=== PATIENT | female | born 1965 ===

== ENCOUNTER 2024-11-04 16:52 | Emergency (ER) | payer SELFPAY ==
[~2024-11-04] VITALS: Ht 167.6 cm; Wt 63.5 kg
[2024-11-04 17:38] VITALS: BP 172/80; PULSE 60; RESP 16; TEMP 98.3; O2SAT 98
[2024-11-04] MEDS: ORPHENADRINE 60MG/2ML IM ONE (17:45)
--- NOTE | 2024-11-04 17:58 | NUR ---
PATIENT ABLE TO AMBULATE WITH NO VISABLE DISTRESS, PAIN REPORTED TO NECK AND BACK HOWEVER NO FACIAL GRIMACE WITH MOVEMENT AND PT VERBALIZED THE NEED FOR X-RAY DUE TO POTENTIAL FUTUE PROBLEMS
--- NOTE | 2024-11-04 18:30 | ERN ---
General Chief Complaint: Mechanical Fall Stated Complaint: FLIP AND FALL Time Seen by MD: 16:54 Source: patient History of Present Illness Initial Comments PATIENT IS A 59-YEAR-OLD FEMALE COMING IN TO BE EVALUATED FALL EARLIER TODAY. PER PATIENT AT 10:00 A.M. SHE WAS WALKING FELL BACK HIT HERSELF IN THE UPPER BACK AND LOWER BACK. SHE STATES THAT THE PAIN WAS NOT IMMEDIATELY PRESENT. SHE HAS BEEN SHOPPING 3 HOURS LATER SHE STARTED HAVING UPPER BACK AND LOWER BACK PAIN. Allergies: Coded Allergies: No Known Drug Allergies (Unverified Allergy, Unknown, 11/04/24) Past Medical History Past Medical History: No Pertinent History Past Surgical History: None ROS Dictation CONSTITUTIONAL: NO CHILLS, NO FEVER, NO WEAKNESS, NO DIAPHORESIS, NO MALAISE. HEAD/FACE: NO SIGNS OF TRAUMA. EENT: NO EYE PAIN, NO BLURRED VISION, NO TEARING, NO DOUBLE VISION, NO EAR PAIN, NO EAR DISCHARGE, NO NOSE PAIN, NO NASAL CONGESTION, NO THROAT PAIN, NO THROAT SWELLING, NO MOUTH PAIN. RESPIRATORY: NO COUGH, NO ORTHOPNEA, NO SOB, NO STRIDOR, NO WHEEZING. CARDIOVASCULAR: NO CHEST PAIN, NO EDEMA, NO PALPITATIONS, NO SYNCOPE. GASTROINTESTINAL/ABDOMINAL: NO ABDOMINAL PAIN, NO CONSTIPATION, NO DIARRHEA, NO NAUSEA, NO VOMITING. GENITOURINARY: NO ABNORMAL DISCHARGE, NO DYSURIA, NO FREQUENT URINATION, NO HEMATURIA. NO COMPLAINTS OF PAIN IN THE GENITALS. MUSCULOSKELETAL: BACK PAIN, NO GOUT, NO JOINT PAIN, NO JOINT SWELLING, NO MUSCLE PAIN, NO MUSCLE STIFFNESS, NO NECK PAIN. INTEGUMENTARY: NO CHANGE IN COLOR, NO CHANGE IN HAIR/NAILS, NO DRYNESS, NO LES ION, NO LUMPS, NO RASH. NEUROLOGICAL/PSYCH: NO ANXIETY, NOT DEPRESSED, NO EMOTIONAL PROBLEM, NO HEADACHE, NO NUMBNESS, NO PRE-EXISTING DEFICIT, NO HISTORY OF SEIZURES, NO TREMORS, NO WEAKNESS. HEMATOLOGIC/LYMPHATIC: NOT ANEMIC, NO HISTORY OF BLOOD CLOTS, NO APPARENT BLEEDING, NO BRUISING, GLANDS NOT SWOLLEN. ALL SYSTEMS NEGATIVE, EXCEPT NOTED. Physical Exam Physical Exam Dictation VITAL SIGNS: REVIEWED. GENERAL APPEARANCE: ALERT, ORIENTED X3, NO ACUTE DISTRESS, OBESE. HEAD AND FACE: NON-TRAUMATIC. EYES: PERRL, PINK CONJUNCTIVAS, EYELID NO TRAUMA, ANTERIOR CHAMBER CLEAR. EARS: PINNAS INTACT AND NO SIGNS OF TRAUMA OR ERYTHEMA. EAR CANALS CLEAR AND NO DISCHARGE. TMS NO ERYTHEMA. NOSE: NO DISCHARGE, NO BLEEDING. OROPHARYNX: MOUTH NORMAL, TEETH NO CARIES, TONGUE PINK. PHARYNX CLEAR, NO ERYTHEMA. TONSILS NO EXUDATES, NO ABSCESSES NOTED. MUCOUS MEMBRANE MOIST. NECK: SUPPLE, NON-TENDER, NO THYROMEGALY, NO MASSES, NO JVD, NO BRUITS. BREAST: DEFERRED. CHEST: NO TENDERNESS, NO CREPITUS, NO PARADOXICAL MOVEMENT, NO RETRACTIONS. LUNGS: CLEAR, WELL-VENTILATED, SYMMETRIC, NO RALES, NO WHEEZING, NO RHONCHI, NO STRIDOR, GOOD BREATH SOUNDS BILATERALLY. HEART: REGULAR RATE, REGULAR RHYTHM, NO MURMUR, NO GALLOPS. VASCULAR: NO PERIPHERAL EDEMA. ABDOMEN: SOFT, POSITIVE BOWEL SOUNDS, NONDISTENDED, NO GUARDING, NONTENDER, NO REBOUND, NO MASSES NO HEPATOMEGALY, NO SPLENOMEGALY, NO BETANCOURT'S SIGN, NO HERNIAS. RECTAL: DEFERRED. GENITAL: DEFERRED. NEUROLOGICAL: NORMAL SPEECH, GROSS MOTOR FUNCTION INTACT, GROSS SENSORY FUNCTION INTACT. MUSCULOSKELETAL: NECK NONTENDER, FULL RANGE OF MOTION, POWER SYSTEM ELECTRICAL ENGINEER, FULL RANGE OF MOTION. EXTREMITIES: NONTENDER, FULL RANGE OF MOTION. SKIN: COLOR PINK, DRY, NO TURGOR, NO RASH, NO LACERATIONS, NO ABRASIONS, NO CONTUSIONS. LYMPHATICS: DEFERRED. Results Laboratory and Microbiology Labs Reviewed?: Yes EKG/XRAY/US/CT/MRI X-RAY Comment X-RAY [id number] CHANGES MDM MDM: DIFFERENTIAL DIAGNOSIS: FALL, BACK PAIN, MUSCLE STRAIN, MUSCLE SPASMS RATIONALE: TESTS CONSIDERED AND ORDERED SECONDARY TO SHARED DECISION MAKING INCLUDE: PREVIOUS OUTSIDE RECORDS REVIEWED: OLD ER VISITS. RISK OF COMPLICATION AND/OR MORBIDITY OR MORTALITY OF PATIENT MANAGEMENT: NONE MEDICATIONS-PER MEDICATION RECONCILIATION PATIENT IS A 59-YEAR-OLD FEMALE COMING IN TO BE EVALUATED FOR BACK PAIN. PATIENT STATES HE FELL BACK HER UPPER BACK AND HAS BEEN HAVING DISCOMFORT. X- RAYS DID NOT DISCLOSE ACUTE FINDINGS. PATIENT WILL BE DISCHARGED WITH A DIAGNOSIS OF MUSCLE SPASMS AND MUSCLE ACHE. DID ADVISED HER APPROPRIATE FOLLOW UP WITH PCP FOR LONG-TERM MANAGEMENT. ED Course Orders Procedure Category Date Status Time Orphenadrine Citrate PHA 11/04/24 Complete (Norflex) 17:30 Ketorolac PHA 11/04/24 Complete Tromethamine 30mg/Ml 18:00 Cerv Spine 2-3vws RAD 11/04/24 Taken 17:04 Lumbar Spine 2-3vws RAD 11/04/24 Taken 17:04 Current Medications Medications (Trade) Dose Ordered Sig/Luis Alfredo Route PRN Reason Start Time Stop Time Status Last Admin Dose Admin Ketorolac Tromethamine (toRADol) 30 mg ONCE ONCE IM 11/04/24 18:00 11/04/24 18:01 DC 11/04/24 17:46 Orphenadrine Citrate (Norflex) 60 mg ONCE ONCE IM 11/04/24 17:30 11/04/24 17:40 DC 11/04/24 17:45 Vital Signs Date Time Temp Pulse Resp B/P (MAP) Pulse Ox O2 Delivery O2 Flow Rate FiO2 11/04/24 17:38 98.2 60 16 172/80 98 Room Air* 0 21 11/04/24 16:52 98.4 62 20 174/80 99 Room Air 0 DX & DISP Disposition: Discharge Departure Impression: Primary Impression: Fall Additional Impressions: Muscle spasm, Body aches Condition: Stable Scripts Naproxen (Naproxen) 375 Mg Tablet.dr 375 MG PO BID for 7 Days, #14 TAB Prov: MAYRA LYNN MD 11/04/24 Methocarbamol (Robaxin) 750 Mg Tab 1 TAB PO BID for 5 Days, #10 TAB 0 Refills Prov: MAYRA LYNN MD 11/04/24 Additional Instructions: FOLLOW-UP WITH PRIMARY CARE PROVIDER IN 1 TO 2 DAYS. TAKE MEDICATIONS DIRECTED HERE IN THE EMERGENCY ROOM. OKAY TO CONTINUE HOME MEDICATIONS UNLESS OTHERWISE DISCUSSED DURING YOUR VISIT IN THE EMERGENCY ROOM TODAY. RETURN TO YOUR NEAREST EMERGENCY ROOM IF SYMPTOMS WORSEN OR IF THERE IS NO IMPROVEMENT. CALL 911 IF YOU NEED IMMEDIATE ASSISTANCE. TAKE TYLENOL [id number] NEEDED AND IF NO CONTRAINDICATIONS ARE PRESENT. INCREASE ORAL HYDRATION. A WOUND CULTURE OR URINE CULTURE WAS ORDERED HERE IN THE EMERGENCY ROOM DEPARTMENT PLEASE FOLLOW-UP WITH PRIMARY CARE PROVIDER AND ADVISE THEM TO GET REPORTS FROM OUR FACILITY. IF YOU HAD ANY CALLI WRAP/SPLINTS THAT WERE APPLIED HERE, PLEASE DO NOT REMOVE THEM UNTIL YOU SEE YOUR PRIMARY CARE OR SPECIALTY. REFERRALS: Referrals: SELF,REFERRAL (PCP) HERMES ART MD Time of Disposition: 18:50 MAYRA LYNN MD Nov 04, 2024 18:30
[2024-11-04] MEDS ORDERED: METH-662 PO (18:51)
[2024-11-04] MEDS ORDERED: NAPR-1505 PO (18:51)
--- NOTE | 2024-11-04 18:53 | HMCIMG ---
EXAM: CR Lumbar Spine, 1 View. CLINICAL HISTORY: fall COMPARISON: None provided. FINDINGS: BONES: No acute fracture or aggressive appearing osseous lesion. 6 lumbar-type vertebral bodies. Partial left-sided L6 sacralization. ALIGNMENT: Alignment is within normal limits. No significant scoliosis. DISCS / DEGENERATIVE CHANGES: Moderate to marked loss of the L5-L6 disc space. Mild anterior endplate marginal spurring. SOFT TISSUES: The soft tissues are unremarkable. IMPRESSION: 1. No acute osseous injury. 2. Transitional anatomy with 6 lumbar-type vertebral bodies. 3. Moderate to marked L5-L6 disc space narrowing with mild anterior endplate spurring. /[place]
--- NOTE | 2024-11-04 18:56 | HMCIMG ---
EXAM: CR Cervical spine, 1 View. CLINICAL HISTORY: fall COMPARISON: None provided. FINDINGS: BONES: No acute fracture or aggressive appearing osseous lesion. DISCS/DEGENERATIVE CHANGES: 2 mm grade 1 posterior listhesis of the C5 over the C6 vertebral body. Moderate loss of the C5-C6 disc space. Mild to moderate loss of the C6-C7 disc space. SOFT TISSUES: No prevertebral soft tissue swelling. The visualized lung apices are clear. Mild right lateral neck soft tissue calcification likely carotid calcific atherosclerosis IMPRESSION: 1. No acute osseous injury. 2. Grade 1 retrolisthesis of C5 on C6 with moderate C5-C6 disc space narrowing. 3. Mild to moderate C6-C7 disc space narrowing. If patient meets NEXUS criteria for requiring cervical spine imaging, recommend CT per [employer] Appropriateness Criteria. Trauma patients who do not require cervical spine imaging: - alert and stable - no focal neurologic deficit - no altered level of consciousness - not intoxicated - no midline spinal tenderness - no distracting injury The NEXUS criteria have a sensitivity of 99.6% for ruling out cervical spine injury in the original study validating the criteria (95% confidence interval, 98.6-100%) 2. The NEXUS criteria may not be reliable with patient >65 years of age, however /[place]
== END 2024-11-04 19:06 | disposition home or self-care (01) ==
LOC: EDH 16:52
DX: M62.838 Other muscle spasm (principal); W18.39XA Other fall on same level, initial encounter; Y93.89 Activity, other specified; Y92.89 Other specified places as the place of occurrence of the external cause; Y99.8 Other external cause status
CPT/HCPCS: 99284; 72040; 72100; 96372 ×2; J1885; J2360